=== PATIENT | female | born 1950 | race Hispanic/Latino ===

== ENCOUNTER 2024-09-23 21:11 | Emergency (ER) | payer MEDICARE ==
[~2024-09-23] VITALS: Ht 162.6 cm; Wt 76.2 kg
[~2024-09-23 21:11] MED LIST: AZATHIOPRINE50 MG PO; CYCLOBENZAPRINE10 MG PO; GABAPENTIN100 MG PO; GLIPIZIDE5 MG PO; LANTUS 3ML100 UNITS/ SC; LISINOPRIL10 MG PO; Linzess PO; TRADJENTA5 MG PO; [UNRECOGNIZED DRUG - OTHER] PO
[2024-09-23 23:17] LABS: CLARITY,URINE CLEAR (CLEAR); COLOR,URINE YELLOW (YELLOW)
[2024-09-23 23:18] LABS: BILIRUBIN,URINE NEGATIVE (NEGATIVE); GLUCOSE, URINE 500 (NEGATIVE); KETONES,URINE NEGATIVE (NEGATIVE); LEUKOCYTE ESTERASE ,URINE NEGATIVE (NEGATIVE); NITRITE,URINE NEGATIVE (NEGATIVE); PH,URINE 5.5 (5 - 7); PROTEIN,URINE DIPSTICK >=300 (NEGATIVE); URINE UROBILINOGEN 0.2 mg/dL (0.2 - 1)
[2024-09-23 23:29] LABS: BACTERIA,URINE MODERATE /HPF; EPITHELIAL CELLS,URINE FEW /LPF; RENAL EPITHELIAL CELLS,URINE FEW
[2024-09-23 23:40] VITALS: PULSE 85; RESP 18; TEMP 97.6; O2SAT 100
[2024-09-23] MEDS ORDERED: KETOROLAC TROME10 MG PO (23:43)
[2024-09-23] MEDS ORDERED: ULTRAM 50MG50 MG PO (23:43)
[2024-09-23] MEDS ORDERED: CEFDINIR300 MG PO (23:43)
== END 2024-09-23 23:50 | disposition home or self-care (01) ==
LOC: ER 21:46
DX: R10.2 Pelvic and perineal pain (principal); N20.0 Calculus of kidney; M54.50 Low back pain, unspecified; I12.9 Hypertensive chronic kidney disease with stage 1 through stage 4 chronic kidney disease, or unspecified chronic kidney disease; E11.22 Type 2 diabetes mellitus with diabetic chronic kidney disease; N18.9 Chronic kidney disease, unspecified; K76.9 Liver disease, unspecified; E78.5 Hyperlipidemia, unspecified; G40.909 Epilepsy, unspecified, not intractable, without status epilepticus
CPT/HCPCS: 74176; 81001; 99282